=== PATIENT | male | born 2000 | race Caucasian/White ===

== ENCOUNTER 2018-02-21 23:44 | Emergency (ER) | payer OTHER ==
[~2018-02-21] VITALS: Ht 177.8 cm; Wt 99.8 kg
[2018-02-21 23:47] VITALS: BP 136/72
--- NOTE | 2018-02-21 23:52 | NUR ---
TO LOBBY, A/W BED, KIKO, TRAY. ERMBernarda NOTED
[2018-02-21 23:53] VITALS: BP 136/72
--- NOTE | 2018-02-22 00:24 | NUR ---
PT AMBULATED TO BED 2
--- NOTE | 2018-02-22 00:30 | NUR ---
17/M CAME IN ED, C/O LACERATION ON L UPPER EYEBROW AREA, BLEEDING CONTROLLED, X9 HOURS AGO. PT STATED [place]. PT REPORTS DIZZINESS AFTER TRAUMA, PT DENIES LOC. PT REPORTS 5/10 PAIN AT THIS TIME. HX CHILDHOOD HEART MURMUR. PT DENIES RX. NKA. PT DENIES N/V/D; SKIN PINK/WARM/DRY; AAOX4, PERRL, WITH EVEN AND STEADY GAIT; LUNGS CLEAR BL, BREATHING UNLABORED; HR EVEN AND REGULAR, BL PERIPHERAL PULSES PRESENT; BS ACTIVE X4, NO TENDERNESS TO PALPATION; PT DENIES ANY FEVER, CP, SOB, OR COUGH AT THIS TIME; VSS; PATIENT POSITIONED FOR COMFORT; HOB ELEVATED; BEDRAILS UP X2; BED DOWN.
--- NOTE | 2018-02-22 02:08 | NUR ---
PATIENT LEFT WITHOUT BEING SEEN BY DR. Krishna. NO FURTHER CARE PROVIDED FOR PATIENT.
== END 2018-02-22 02:08 | disposition left against medical advice (07) ==
LOC: MED 23:44
DX: S01.112A Laceration without foreign body of left eyelid and periocular area, initial encounter (principal); X58.XXXA Exposure to other specified factors, initial encounter; Y93.89 Activity, other specified; Y92.89 Other specified places as the place of occurrence of the external cause; Y99.8 Other external cause status; Z53.21 Procedure and treatment not carried out due to patient leaving prior to being seen by health care provider

== ENCOUNTER 2018-05-15 14:22 | Emergency (ER) | payer OTHER ==
[~2018-05-15] VITALS: Ht 175.3 cm; Wt 108.9 kg
[2018-05-15 14:29] VITALS: BP 116/75
--- NOTE | 2018-05-15 14:35 | NUR ---
PATIENT PRESENTS TO ED WITH RIGHT KNEE PAIN . PT STATES HE FELL WHILE SKATEBOARDING YESTERDAY; DENIES N/V/D; SKIN IS PINK/WARM/DRY; AAOX4 WITH EVEN AND STEADY GAIT; LUNGS CLEAR BL; HR EVEN AND REGULAR; PT DENIES ANY FEVER, CP, SOB, OR COUGH AT THIS TIME; PATIENT STATES PAIN OF 10/10 AT THIS TIME; VSS; PATIENT POSITIONED FOR COMFORT; HOB ELEVATED; BEDRAILS UP X2; BED DOWN. ER MD MADE AWARE OF PT STATUS.
[2018-05-15] MEDS ORDERED: IBUPROFEN 600 MG TAB PO ONE (15:05)
[2018-05-15] MEDS ORDERED: traMADol 50 MG TAB PO ONE (15:05)
--- NOTE | 2018-05-15 15:43 | NUR ---
Patient discharged with v/s stable. Written and verbal after care instructions given and explained. Patient alert, oriented and verbalized understanding of instructions. Ambulatory with CRUTCHES. All questions addressed prior to discharge. ID band removed. Patient advised to follow up with PMD. Rx of KETOROLAC TROMETHAMINE given. Patient educated on indication of medication including possible reaction and side effects. Opportunity to ask questions provided and answered.
[2018-05-15 15:46] VITALS: BP 116/75
== END 2018-05-15 15:43 | disposition home or self-care (01) ==
LOC: MED 14:22
DX: S83.91XA Sprain of unspecified site of right knee, initial encounter (principal); V00.131A Fall from skateboard, initial encounter; Y93.51 Activity, roller skating (inline) and skateboarding; Y92.89 Other specified places as the place of occurrence of the external cause; Y99.8 Other external cause status
CPT/HCPCS: 29505; 73562; 99284; Q0092